=== PATIENT | female | born 1930 | race Caucasian/White ===

== ENCOUNTER 2019-05-18 14:31 | Observation (INO) | payer MEDICARE ==
[~2019-05-18] VITALS: Ht 162.6 cm; Wt 49.0 kg
[2019-05-18] MEDS ORDERED: ACETAMINOPHEN 325 MG TABLET ONE (14:51)
[2019-05-18] MEDS ORDERED: SODIUM CHLORIDE 0.9% 1,000 ML IV ONE (15:00)
[2019-05-18] MEDS ORDERED: ACETAMINOPHEN 325 MG TABLET PO ONE (15:00)
[2019-05-18 15:05] LABS: BASOPHILS # (AUTO) 0.01 x10^3/uL (0-0.1); BASOPHILS % (AUTO) 0 % (0-1); EOSINOPHILS # (AUTO) 0.08 x10^3/uL (0-0.4); EOSINOPHILS % (AUTO) 2 % (1-7); LYMPHOCYTES # (AUTO) 1.06 x10^3/uL (1-3.4); LYMPHOCYTES % (AUTO) 22 % (22-44); MD NO; MEAN CORPUSCULAR HGB CONC 33.3 g/dL (32.4-35.8); MEAN CORPUSCULAR VOLUME 102.2 fL (80-100); MONOCYTES # (AUTO) 0.34 x10^3/uL (0.2-0.8); MONOCYTES % (AUTO) 7 % (2-9); NEUTROPHILS # (AUTO) 3.28 x10^3/uL (1.8-6.8); NEUTROPHILS % (AUTO) 69 % (42-75); PLATELET COUNT 191 x10^3/uL (130-400); RED BLOOD COUNT 4.15 x10^6/uL (3.82-5.3); RED CELL DISTRIBUTION WIDTH 12.4 % (9.6-15.2)
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
[2019-05-18 15:18] LABS: ALBUMIN 3.5 g/dL (3.4-5.0); ANION GAP 5 mmol/L (5-15); CALCIUM 9.5 mg/dL (8.5-10.1); CHLORIDE 102 mmol/L (98-107); CREATININE 0.74 mg/dL (0.55-1.02)
[2019-05-18] MEDS ORDERED: ONDANSETRON 2MG/ML, 2ML IVPush PRN (15:30)
[2019-05-18] MEDS ORDERED: ACETAMINOPHEN 325 MG TABLET PO PRN (15:30)
[2019-05-18] MEDS ORDERED: ONDANSETRON ODT 4 MG PO PRN (15:30)
--- NOTE | 2019-05-18 15:46 | NUR ---
RESTING IN BED. ADMITTING MD SAW PT. AWAITING BED. VSS. STS NEAL IMPROVED. CALL RODRIGUEZ IN REACH.
--- NOTE | 2019-05-18 16:49 | NUR ---
pt to mri vss. brother Cliff called for update, will ask pt for permission first: [phone]. as
--- NOTE | 2019-05-18 17:20 | NUR ---
back in room from mri. will update brother. vss. no complaints at this time. awaiting bed. 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 Moderate chronic white matter small vessel ischemic changes. 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
--- NOTE | 2019-05-18 17:29 | NUR ---
updated brother Cliff w/ pt permission. as
[2019-05-18] MEDS ORDERED: HEPARIN 5,000 UNITS/ML, 1ML ONE (18:18)
[2019-05-18] MEDS: HEPARIN 5,000 UNITS/ML, 1ML SQ SCH (18:22)
[2019-05-18] MEDS: SODIUM CHLORIDE 0.9% 1,000 ML IV SCH (19:00)
--- NOTE | 2019-05-18 19:04 | NUR ---
REPORT TO TEJA CHUNG.
[2019-05-18] MEDS: ATORVASTATIN 80 MG TABLET PO SCH (21:00)
[2019-05-19 02:52] VITALS: BP 122/65
[2019-05-19] MEDS ORDERED: HEPARIN 5,000 UNITS/ML, 1ML ONE (02:58)
[2019-05-19] MEDS: HEPARIN 5,000 UNITS/ML, 1ML SQ SCH ×2 (03:00→15:44)
[2019-05-19 05:41] LABS: BASOPHILS # (AUTO) 0.01 x10^3/uL (0-0.1); BASOPHILS % (AUTO) 0 % (0-1); EOSINOPHILS # (AUTO) 0.11 x10^3/uL (0-0.4); EOSINOPHILS % (AUTO) 3 % (1-7); LYMPHOCYTES # (AUTO) 0.89 x10^3/uL (1-3.4); LYMPHOCYTES % (AUTO) 22 % (22-44); MD NO; MEAN CORPUSCULAR HEMOGLOBIN 34.2 pg (27.0-34.8); MEAN CORPUSCULAR HGB CONC 33.4 g/dL (32.4-35.8); MEAN CORPUSCULAR VOLUME 102.3 fL (80-100); MEAN PLATELET VOLUME 8.2 fL (7.4-10.4); MONOCYTES # (AUTO) 0.34 x10^3/uL (0.2-0.8); MONOCYTES % (AUTO) 9 % (2-9); NEUTROPHILS # (AUTO) 2.64 x10^3/uL (1.8-6.8); NEUTROPHILS % (AUTO) 66 % (42-75); PLATELET COUNT 158 x10^3/uL (130-400); RED BLOOD COUNT 3.84 x10^6/uL (3.82-5.3); RED CELL DISTRIBUTION WIDTH 12.3 % (9.6-15.2)
[2019-05-19 05:49] LABS: ANION GAP 4 mmol/L (5-15); CALCIUM 8.9 mg/dL (8.5-10.1); CHLORIDE 106 mmol/L (98-107)
[2019-05-19 05:53] LABS: CHOL/HDL RATIO 1.5; CHOLESTEROL, TOTAL 157 mg/dL (140-239); CREATININE 0.74 mg/dL (0.55-1.02); HDL CHOL % 66 % (28-40); HDL CHOLESTEROL (DIRECT) 103 mg/dL (40-60); LDL CHOLESTEROL,CALCULATED 43 mg/dL (54-169); LDL/HDL RATIO 0.4 (0.5-3.0); TRIGLYCERIDES 56 mg/dL (50-200); VLDL CHOLESTEROL 11 mg/dL (0-25)
--- NOTE | 2019-05-19 07:08 | NUR ---
RECEIVED BEDSIDE REPORT FROM SHELDON LEZAMA. PT RESTING ON HOSP BED.
--- NOTE | 2019-05-19 08:57 | NUR ---
PT RESTING ON HOSP BED. NADN. PT HAS CALL LIGHT WITHIN REACH. VSS. AWAITING BED ASSIGNMENT.
[2019-05-19] MEDS: ASPIRIN 325 MG TABLET PO SCH (09:00)
--- NOTE | 2019-05-19 10:16 | NUR ---
PT CONTINUES TO REST ON HOSP BED. CALLED HOSPITALIST FOR DIET ORDER. NADN. NO NEEDS REQUESTED AT THIS TIME.
--- NOTE | 2019-05-19 10:37 | NUR ---
DIET TRAY DELIVERED.
--- NOTE | 2019-05-19 11:30 | NUR ---
PT ASSISTED TO BATHROOM. PT GIVEN NEW BRIEFS AND PAD, PER PT REQUEST. LAZARA KERR. ULTRASOUND BEDSIDE FOR PROCEDURES. NO OTHER NEEDS REQUESTED AT THIS TIME
--- NOTE | 2019-05-19 11:43 | NUR ---
REPORT TO SHELDON BROWN. ALL QUESTIONS ANSWERED.
[2019-05-19] MEDS ORDERED: ASPIRIN 325 MG TABLET ONE (11:56)
--- NOTE | 2019-05-19 12:39 | NUR ---
ULTRASOUND STILL BEDSIDE.
--- NOTE | 2019-05-19 13:08 | NUR ---
PT BEING TRANSFERRED TO FLOOR. PT LEFT WITH ALL PERSONAL BELONGINGS. PT HAS RIGHT HEARING AID IN HER EAR AT TIME OF TRANSPORT TO FLOOR.
[2019-05-19 13:40] VITALS: BP 136/75
[2019-05-19] MEDS ORDERED: POTA20TA89 PO (17:19)
[2019-05-19] MEDS ORDERED: META800T PO (17:19)
[2019-05-19] MEDS ORDERED: ATOR40TA78 PO (17:19)
[2019-05-19] MEDS ORDERED: OXYB5TAB10 PO (17:19)
[2019-05-19] MEDS ORDERED: CLOP75TA PO (17:19)
[2019-05-19] MEDS ORDERED: TRIA1CAP PO (17:19)
[2019-05-19] MEDS ORDERED: PARO20TA4 PO (17:19)
[2019-05-19 20:11] VITALS: BP 125/74
[2019-05-19] MEDS: SODIUM CHLORIDE 0.9% 1,000 ML IV SCH (21:30)
[2019-05-19] MEDS: ATORVASTATIN 80 MG TABLET PO SCH (21:30)
[2019-05-20 00:11] VITALS: BP 163/80
[2019-05-20] MEDS: HEPARIN 5,000 UNITS/ML, 1ML SQ SCH ×2 (04:25→16:05)
[2019-05-20 06:59] VITALS: BP 150/76
[2019-05-20] MEDS: ASPIRIN 325 MG TABLET PO SCH (09:05)
[2019-05-20 13:55] VITALS: BP 109/63
[2019-05-20] MEDS ORDERED: FLU VACC QS2019-20 36MOS UP/PF 0.5 ML IM-VACC ONE (16:30)
== END 2019-05-20 17:10 | disposition home or self-care (01) ==
LOC: ED 15:16 → INTOOBSV 15:30 → EDIP 15:30 → 4WST 05-19 13:13 → DCLOUNGE 05-20 16:59
PROVIDERS: ADMIT Internal Medicine; ATTEND Internal Medicine
DX: G45.9 Transient cerebral ischemic attack, unspecified (principal); I63.9 Cerebral infarction, unspecified; R79.89 Other specified abnormal findings of blood chemistry; I10 Essential (primary) hypertension; E87.1 Hypo-osmolality and hyponatremia; G47.00 Insomnia, unspecified; R41.82 Altered mental status, unspecified; Z85.43 Personal history of malignant neoplasm of ovary; Z66 Do not resuscitate; Z23 Encounter for immunization
CPT/HCPCS: 36415; 70450; 70551; 80048; 80061; 82040; 85025; 90471; 90686; 92523; 93005; 93306; 93880; 96360; 96361; 96372; 97162; 97166; 99284; G0378; J1644; J7030; 99285